=== PATIENT | male | born 1985 | race Hispanic/Latino ===

== ENCOUNTER 2018-05-16 14:10 | Emergency (ER) | payer SELFPAY ==
[~2018-05-16] VITALS: Ht 203.2 cm; Wt 105.0 kg
[2018-05-16 14:21] VITALS: BP 148/92
[2018-05-16] MEDS ORDERED: CIPROFLOXACN500 MG PO (14:49)
[2018-05-16] MEDS ORDERED: LORTAB 1010 MG PO (14:49)
[2018-05-16] MEDS ORDERED: FLOXIN OTIC0.3 % OT (14:49)
== END 2018-05-16 15:00 | disposition home or self-care (01) | DRG 153 ==
LOC: ED 14:10
DX: H66.92 Otitis media, unspecified, left ear (principal)